=== PATIENT | female | born 1980 | race Caucasian/White ===

== ENCOUNTER → 2016-10-24 16:00 | Outpatient (CLI) | payer MEDICAID | END | disposition home or self-care (01) | LOC: D.LABREF 16:00 | DX: R31.9 Hematuria, unspecified (principal) ==

== ENCOUNTER 2016-11-06 05:45 | Day surgery (SDC) | payer MEDICAID ==
[2016-11-05 11:11] LABS: HEMATOCRIT 41.3 % (36.0-48.0); HEMOGLOBIN 12.9 g/dL (12-16); MCHC 31.2 g/dL (31.0-37.0); MCV 83.1 fL (80.0-100.0); MEAN PLATELET VOLUME 10.2 fL (7.4-10.4); RBC 4.97 10x6/uL (4.00-5.40); RDW 14.7 % (11.5-14.5); WBC 9.5 10x3/uL (4.8-10.8)
[~2016-11-06] VITALS: Ht 167.6 cm; Wt 112.9 kg
[~2016-11-06 05:45] MED LIST: LO LOESTRIN TAB PO
[2016-11-06 06:08] VITALS: BP 122/81; Ht 167.6 cm; Wt 112.9 kg
--- NOTE | 2016-11-06 09:32 | NUR ---
IV DC WITH CATHER TIP INTACT
--- NOTE | 2016-11-07 14:58 | OP ---
PATIENT NAME: TAMY MARINA MEDICAL RECORD: [id number] :82 LOCATION:D.OPS ADMISSION DATE: SURGEON: USAMA YOUSIF MD DATE OF OPERATION: 11/06/2016 SURGEON: Usama Yousif M.D. ANESTHESIA: MAC by Carlo May CRNA. PREOPERATIVE DIAGNOSIS: Chronic interstitial cystitis. FINDINGS: Single ureteral orifices bilaterally. No bladder tumors. Diffuse bladder wall inflammation with glomerulations. PROCEDURES: Cystoscopy, intravesical instillation of Rimso 50% times 50 mL. SPECIMENS: None. BLOOD LOSS: None. CLINICAL HISTORY: This is a 36-year-old female, who has symptoms of bladder infection for a long time. She has urinary frequency, suprapubic pain and dysuria with dyspareunia. She has been on numerous antibiotics without any relief. She has had no positive urine culture showing bacteria. Her symptoms are highly suggestive of interstitial cystitis and today, we are performing cystoscopy to verify this and if inflammation is seen in the bladder wall, we will start treatment with intravesical Rimso, which is an anti-inflammatory. She was given Ancef 1 gram IV instrument person to the OR. DESCRIPTION OF PROCEDURE: The patient was given IV sedation. She was placed in the dorsal lithotomy position and prepped and draped. A 17-Latvian cystoscope with 30-degree lens was used for visualization. The scope was placed into the bladder and the bladder urine was drained. We then started filling the bladder with normal saline. She has single ureteral orifices. The bladder wall showed quite diffuse inflammation with very prominent veins. No bladder tumors were seen. Punctate hemorrhages, which are called glomerulations, were also seen throughout the bladder wall. At this point, the diagnosis of interstitial cystitis having been made, we decided to empty the bladder. A 16-Latvian Jiménez catheter was inserted into the bladder. We instilled the 50 mL of Rimso into the bladder and then removed the Jiménez catheter, leaving the fluid within the bladder. The patient was then brought to recovery room where she will be asked to hold the medication for 15 minutes in the bladder before voiding it out. She will then be discharged home. I will see her next week in the office to have the second treatment of Rimso done in the office. TRANSINT:[id number] Voice Confirmation ID: [id number] DOCUMENT ID: [id number] OPERATIVE REPORT [id number] TAMY MARINA ROBERT S MD at 1458 CC: [id number] DICTATION DATE: 11/06/16824 SUPERVISOR IRRIGATION: 11/06/16 1502 [facility] 11/06/16 [address] [place] [address]
== END 2016-11-06 09:30 | disposition home or self-care (01) ==
LOC: D.OPS 05:45 → D.PAN 07:30 → D.OPS 09:30
PROVIDERS: Anesthesiology
DX: N30.10 Interstitial cystitis (chronic) without hematuria (principal); E66.9 Obesity, unspecified; Z68.41 Body mass index [BMI] 40.0-44.9, adult; Z01.812 Encounter for preprocedural laboratory examination

== ENCOUNTER 2017-04-13 16:00 | Emergency (ER) | payer MEDICAID ==
[2016-11-06 06:08] VITALS: BMI 40.2
[2017-04-13 16:50] LABS: APPEARANCE CLEAR (CLEAR); COLOR DK YELLOW (YELLOW)
[2017-04-13 16:51] LABS: BILIRUBIN NEGATIVE (NEGATIVE); GLUCOSE NEGATIVE (NEGATIVE); KETONE SMALL mg/dL (NEGATIVE); NITRITE NEGATIVE (NEGATIVE); PROTEIN NEGATIVE (NEGATIVE); UROBILINOGEN NORMAL (NORMAL)
[2017-04-13 16:52] LABS: BACTERIA FEW /hpf (NONE SEEN); RED CELLS - URINE 0-5 /hpf (0-5); WHITE CELLS - URINE OCC /hpf (0-5)
[2017-04-13 16:59] LABS: BASOPHILS 0.2 % (0-2); EOSINOPHILS 1.4 % (0-7); HEMATOCRIT 42.2 % (36.0-48.0); HEMOGLOBIN 13.3 g/dL (12-16); IMMATURE GRANULOCYTES 0.3 % (0-5); LYMPHOCYTES 31.8 % (15-50); MCH 26.7 pg (26.0-34.0); MCHC 31.5 g/dL (31.0-37.0); MCV 84.6 fL (80.0-100.0); MEAN PLATELET VOLUME 10.2 fL (7.4-10.4); MONOCYTES 7.6 % (2-11); NEUTROPHILS 58.7 % (40-80); PLATELET COUNT 292 10x3/uL (130-400); RBC 4.99 10x6/uL (4.00-5.40); RDW 14.2 % (11.5-14.5); WBC 10.4 10x3/uL (4.8-10.8)
[2017-04-13 17:14] LABS: HCG SERUM NEGATIVE (NEGATIVE)
[2017-04-13 17:39] LABS: ALBUMIN 3.8 g/dL (3.4-5.0); ANION GAP 13.9 mmol/L (8-16); BILIRUBIN - TOTAL 0.27 mg/dL (0.2-1.3); CALCIUM 10.6 mg/dL (8.5-10.1); CARBON DIOXIDE 29.3 mmol/L (21.0-32.0); POTASSIUM - SERUM 4.2 mmol/L (3.5-5.1); PROTEIN - SERUM 8.5 g/dL (6.4-8.2)
== END 2017-04-13 19:15 | disposition home or self-care (01) ==
LOC: D.ER 16:00
PROVIDERS: Emergency Medicine; Nurse Practitioner Acute Care
DX: R10.31 Right lower quadrant pain (principal)

== ENCOUNTER 2017-10-12 13:07 | Emergency (ER) | payer MEDICAID ==
[2016-11-06 06:08] VITALS: BMI 40.2
[2017-10-12 13:57] LABS: APPEARANCE HAZY (CLEAR); BACTERIA MODERATE /hpf (NONE SEEN); BILIRUBIN NEGATIVE (NEGATIVE); COLOR YELLOW (YELLOW); GLUCOSE NEGATIVE (NEGATIVE); KETONE NEGATIVE (NEGATIVE); MUCUS >1+ /lpf (NONE SEEN); NITRITE NEGATIVE (NEGATIVE); PROTEIN NEGATIVE (NEGATIVE); RED CELLS - URINE 0-5 /hpf (0-5); UROBILINOGEN NORMAL (NORMAL); WHITE CELLS - URINE 0-5 /hpf (0-5)
[2017-10-12 14:10] LABS: BASOPHILS 0.3 % (0-2); HEMOGLOBIN 12.3 g/dL (12-16); IMMATURE GRANULOCYTES 0.3 % (0-5); LYMPHOCYTES 32.6 % (15-50); MCH 26.4 pg (26.0-34.0); MCHC 31.5 g/dL (31.0-37.0); MCV 83.7 fL (80.0-100.0); MEAN PLATELET VOLUME 10.1 fL (7.4-10.4); MONOCYTES 9.4 % (2-11); NEUTROPHILS 56.4 % (40-80); PLATELET COUNT 237 10x3/uL (130-400); RBC 4.66 10x6/uL (4.00-5.40); RDW 14.2 % (11.5-14.5)
[2017-10-12 14:19] LABS: HCG SERUM NEGATIVE (NEGATIVE)
[2017-10-12 14:28] LABS: ALBUMIN 3.3 g/dL (3.4-5.0); ALKALINE PHOSPHATASE 65 U/L (46-116); ALT (SGPT) 16 U/L (10-68); BILIRUBIN - TOTAL 0.19 mg/dL (0.2-1.3); CALC OSMOLALITY 278 mosm/kg (275-300); CALCIUM 9.5 mg/dL (8.5-10.1); CHLORIDE - SERUM 103 mmol/L (98-107); CREATININE - SERUM 0.9 mg/dL (0.6-1.3); GLUCOSE 115 mg/dL (74-106); POTASSIUM - SERUM 3.5 mmol/L (3.5-5.1); SODIUM 140 mmol/L (136-145); UREA NITROGEN 9 mg/dL (7-18); eGFR NON AFRICAN AMERICAN 75 mL/min (90-120)
== END 2017-10-12 16:57 | disposition home or self-care (01) ==
LOC: D.ER 13:07
PROVIDERS: Emergency Medicine
DX: R10.9 Unspecified abdominal pain (principal); A08.4 Viral intestinal infection, unspecified

== ENCOUNTER → 2018-10-18 14:35 | Outpatient (CLI) | payer MEDICAID ==
[2016-11-06 06:08] VITALS: BMI 40.2
== END | disposition home or self-care (01) ==
LOC: D.CT 14:35
PROVIDERS: ATTEND Family Medicine
DX: Z87.442 Personal history of urinary calculi (principal)